=== PATIENT | female | born 1960 | race Caucasian/White ===

== ENCOUNTER 2019-10-13 15:39 | Outpatient (CLI) | payer OTHER, SELFPAY ==
--- NOTE | ~2019-10-13 | MM_ITS ---
EXAMINATION: MM screening [facility] BI w ezekiel HISTORY: Screening mammogram TECHNIQUE: Craniocaudal and mediolateral oblique 3-D tomosynthesis images were obtained and synthetic 2-D images were generated. CAD analysis was submitted and interpreted. COMPARISON: 07/05/2018 bilateral digital screening mammogram 06/03/2017 bilateral digital screening mammogram BREAST PARENCHYMAL COMPOSITION: There are scattered areas of fibroglandular density. FINDINGS: Occasional bilateral benign calcifications there are 2 biopsy markers on the left; history of 2 prior benign left breast biopsies. There is no evidence of suspicious mass, calcification, or ar chitectural distortion to suggest malignancy in either breast. There has been no suspicious interval change. IMPRESSION: 1. No mammographic evidence of malignancy. 2. Recommend routine screening mammography in one year. BI-RADS Category 2: Benign finding(s). Reviewed, dictated and finalized at location A.
== END 2019-10-13 15:40 | disposition home or self-care (01) ==
LOC: ANHIMG 15:42
PROVIDERS: PCP Internal Medicine; Visit Provider Obstetrics & Gynecology
DX: Z12.31 Encounter for screening mammogram for malignant neoplasm of breast (principal)
CPT/HCPCS: 77063; 77067

== ENCOUNTER 2020-10-17 16:00 | Outpatient (CLI) | payer OTHER, SELFPAY ==
--- NOTE | ~2020-10-17 | MM_ITS ---
EXAMINATION: MM screening [facility] BI w ezekiel HISTORY: Screening mammogram TECHNIQUE: Craniocaudal and mediolateral oblique 3-D tomosynthesis images were obtained and synthetic 2-D images were generated. CAD analysis was submitted and interpreted. COMPARISON: 10/13/2019, 07/05/2018, 06/03/2017 BREAST PARENCHYMAL COMPOSITION: There are scattered areas of fibroglandular density. FINDINGS: There is no evidence of suspicious mass, calcification, or architectural distortion to sugg est malignancy in either breast. There has been no suspicious interval change. IMPRESSION: 1. No mammographic evidence of malignancy. 2. Recommend routine screening mammography in one year. BI-RADS Category 1: Negative Reviewed, dictated and finalized at location A.
== END 2020-10-17 16:01 | disposition home or self-care (01) ==
LOC: ANHIMG 16:05
PROVIDERS: PCP Internal Medicine; Visit Provider Obstetrics & Gynecology
DX: Z12.31 Encounter for screening mammogram for malignant neoplasm of breast (principal)
CPT/HCPCS: 77063; 77067

== ENCOUNTER 2021-11-29 15:18 | Outpatient (CLI) | payer OTHER, SELFPAY ==
--- NOTE | ~2021-11-29 | MM_ITS ---
EXAMINATION: MM screening [facility] BI w ezekiel HISTORY: Screening mammogram TECHNIQUE: Craniocaudal and mediolateral oblique 3-D tomosynthesis images were obtained and synthetic 2-D images were generated. CAD analysis was submitted and interpreted. COMPARISON: 10/17/2020, 10/13/2019, 07/2018 bilateral screening mammogram examinations BREAST PARENCHYMAL COMPOSITION: There are scattered areas of fibroglandular density. FINDINGS: 2 biopsy markers on the left; history of 2 prior benign left breast biopsies. Occasional bi lateral benign calcifications. There is no evidence of suspicious mass, calcification, or architectur al distortion to suggest malignancy in either breast. There has been no suspicious interval change. IMPRESSION: 1. No mammographic evidence of malignancy. 2. Recommend routine screening mammography in one year. BI-RADS Category 2: Benign finding(s). Reviewed, dictated and finalized at location B.
== END 2021-11-29 15:19 | disposition home or self-care (01) ==
LOC: ANHIMG 15:21
PROVIDERS: PCP Internal Medicine; Visit Provider Obstetrics & Gynecology
DX: Z12.31 Encounter for screening mammogram for malignant neoplasm of breast (principal)
CPT/HCPCS: 77063; 77067

== ENCOUNTER 2023-02-12 08:02 | Outpatient (CLI) | payer OTHER, SELFPAY ==
--- NOTE | ~2023-02-12 | MM_ITS ---
EXAMINATION: MM screening [facility] BI w ezekiel HISTORY: Screening mammogram TECHNIQUE: Craniocaudal and mediolateral oblique 3-D tomosynthesis images were obtained and synthetic 2-D images were generated. CAD analysis was submitted and interpreted. COMPARISON: 11/29/2021, 10/17/2020, 10/13/2019, 07/05/2018 BREAST PARENCHYMAL COMPOSITION:There are scattered areas of fibroglandular density. FINDINGS: No suspicious mass, calcification, or architectural distortion are identified in either erika ast to suggest malignancy. There has been no suspicious interval change. IMPRESSION: No mammographic evidence of malignancy. Recommend routine screening mammography in one year. BI-RADS Category 1: Negative Reviewed, dictated and finalized at location .
== END 2023-02-12 08:03 | disposition home or self-care (01) ==
PROVIDERS: PCP Internal Medicine; Visit Provider Obstetrics & Gynecology
DX: Z12.31 Encounter for screening mammogram for malignant neoplasm of breast (principal)
CPT/HCPCS: 77063; 77067

== ENCOUNTER 2024-04-14 08:58 | Outpatient (CLI) | payer OTHER, SELFPAY ==
--- NOTE | ~2024-04-14 | MM_ITS ---
EXAMINATION: MM screening [facility] BI w ezekiel HISTORY: Screening TECHNIQUE: Craniocaudal and mediolateral oblique 3-D tomosynthesis images were obtained and synthetic 2-D images were generated. CAD analysis was submitted and interpreted. COMPARISON: Comparison to multiple prior studies sequentially, with oldest reviewed study dated 10/12. BREAST PARENCHYMAL COMPOSITION: Not dense: There are scattered areas of fibroglandular density. FINDINGS: Left breast asymmetry in the upper outer quadrant is unchanged. There is no evidence of tia picious mass, calcification, or architectural distortion to suggest malignancy in either breast. Ther e has been no suspicious interval change. IMPRESSION: 1. No mammographic evidence of malignancy. 2. Recommend routine screening mammography in one year. BI-RADS Category 1: Negative Reviewed, dictated and finalized at location B. L COOK
== END 2024-04-14 08:59 | disposition home or self-care (01) ==
PROVIDERS: PCP Internal Medicine; Visit Provider Obstetrics & Gynecology
DX: Z12.31 Encounter for screening mammogram for malignant neoplasm of breast (principal)
CPT/HCPCS: 77063; 77067

== ENCOUNTER 2024-09-23 01:14 | Day surgery (SDC) | payer OTHER, SELFPAY ==
[2024-09-20 10:24] VITALS: BMI 32.4
--- OUTSIDE RECORDS SUMMARY | 2024-09-23 01:18 | XMS_ITS | Clinical Summary ---
Author Organization [facility] Address [address] [place] [address] Care Team Providers Care Destaticizer Feeder Name Role Phone Subhash Farooq Primary Care Provider [phone] Allergies No known active allergies Medications carvedilol (COREG) 25 mg tablet take 1 tablet by oral route 2 times every day with food 0 0 06/20/2016 Active felodipine (PLENDIL) 10 mg 24 hr tablet take 1 tablet by oral route every day 0 0 06/20/2016 Active benazepril (LOTENSIN) 40 mg tablet take 1 tablet by oral route every day 0 0 06/20/2016 Active cholecalciferol (VITAMIN D-3) 2,000 unit capsule Take by oral route. Active pantoprazole DR (PROTONIX) 40 mg EC tablet 12/10/2017 Active cetirizine (ZyrTEC) 10 mg tablet Take 1 tablet (10 mg total) by mouth daily PRN Active atorvastatin (LIPITOR) 20 mg tablet Take 1 tablet (20 mg total) by mouth daily 03/03/2022 Active Active Problems Problem Noted Date Diagnosed Date Hyperglycemia 03/13/2020 Assessment & Plan (04/13/2024 4:14 PM BLOOD TYPER): Importance of diet and exercise to avoid progression to diabetes was discussed Update hemoglobin A1c Assessment & Plan (04/23/2023 11:03 AM BLOOD TYPER): pre diabetes A1c was up to 6.6% on 08/17/21 Diet controlled A1c 6.1% on 05/01/22 A1c 6.4% on 05/19/20 A1c 6.2% on 03/29/19 Plan: patient to continue diet. check A1c Assessment & Plan (04/22/2022 4:27 PM BLOOD TYPER): pre diabetes A1c was up to 6.6% on 08/17/21 Patient changed diet and lost almost 30 lbs. A1c 6.4% on 05/19/20 A1c 6.2% on 03/29/19 Plan: I asked patient to continue diet. Patient to have fasting labs including A1c Assessment & Plan (03/15/2021 4:42 PM BLOOD TYPER): Early diabetes A1c 6.4% on 05/19/20 A1c 6.2% on 03/29/19 Plan: I asked patient to watch diet and work on weight loss. Discussed low carb diet and to avoid sweets. Patient to have fasting labs including A1c Assessment & Plan (03/13/2020 4:41 PM BLOOD TYPER): Fasting hyperglycemia A1c 6.2% on 03/29/19 Early diabetes Patient changing diet Plan: Explained to patient ADA diet Patient to work on weight loss with diet and exercise. Essential hypertension 12/19/2016 Pituitary adenoma 06/20/2016 Overview (08/07/2016): Pituitary adenoma Assessment & Plan (04/13/2024 4:14 PM BLOOD TYPER): Without significant changes since MRI from 2018 Would recommend follow-up MRI next year Will proceed for hormonal workup including TSH, free T4, acth and morning cortisol Assessment & Plan (04/23/2023 11:02 AM BLOOD TYPER): Pituitary macroadenoma since 2013. started on radiation treatment due to increase in size 13 mm in MRI 2016 monitored by her Neurosurgeon on annual basis Last MRI on 04/01/23- stable work up did not show hormonal dysfunction. She had borderline low ACTH, but normal Cosyntropin stimulation test in September 2016. Patient is clinically stable. Labs on 05/01/22 Prolactin was 53 Normal TSh and free T4. Plan: We will continue to monitor for pituitary hormonal abnormality as the result of radiation. Check labs this week Follow up in one year if stable. She will see Dr. Parra Assessment & Plan (04/22/2022 4:28 PM BLOOD TYPER): Pituitary macroadenoma since 2013. started on radiation treatment due to increase in size 13 mm in MRI 2016 monitored by her Neurosurgeon on annual basis Last MRI on 03/04/21- she will have one next year. work up did not show hormonal dysfunction. She had borderline low ACTH, but normal Cosyntropin stimulation test in September 2016. Patient is clinically stable. Labs on 04/06/21 Prolactin was up to 47 Normal TSh and free T4. Plan: We will continue to monitor for pituitary hormonal abnormality as the result of radiation. Check labs this month. Follow up in one year if stable. Assessment & Plan (03/15/2021 4:41 PM BLOOD TYPER): Pituitary macroadenoma since 2013. started on radiation treatment due to increase in size 13 mm in MRI 2016 monitored by her Neurosurgeon on annual basis Last MRI on 03/04/21 work up did not show hormonal dysfunction. She had borderline low ACTH, but normal Cosyntropin stimulation test in September 2016. Patient is clinically stable. Labs on 05/19/20 Prolactin was up to 49 Normal TSh and free T4. Plan: We will continue to monitor for pituitary hormonal abnormality as the result of radiation. Check labs this month. Follow up in one year if stable. Assessment & Plan (03/13/2020 4:40 PM BLOOD TYPER): Pituitary macroadenoma since 2013. started on radiation treatment due to increase in size 13 mm in MRI 2016 monitored by her Neurosurgeon on annual basis Last MRI in February/2020 work up did not show hormonal dysfunction. With normal prolactin and TFT and BMP. She had borderline low ACTH, but normal Cosyntropin stimulation test in September 2016. Patient is clinically stable. Labs in July 2017 showed normal BMP TSH 1.6 with normal free T4 of 1.11 Am cortisol 16.2 with ACTH of 8.8. Labs in 2018 Am cortisol 11.2 with normal TFT Plan: We will continue to monitor for pituitary hormonal abnormality as the result of radiation. Check labs this month. Follow up in one year if stable. Encounters Date Type Department Care Team Description 07/29/2024 Results Follow-Up [facility] of [address] [address] Kristen Parra MD Cortisol, ACTH, Cortisol, Cortisol 07/22/2024 11:05 AM CDT Lab [address] [address] Pituitary adenoma (HCC) 07/22/2024 10:15 AM CDT Clinical Support [facility] of [address] [address] Pituitary adenoma (HCC) (Primary Dx) 07/01/2024 Results Follow-Up [facility] of [address] [address] Kristen Parra MD T4, free, TSH, Prolactin, Additional followed-up results: 3 from Last 3 Months Medical History Medical History Date Comments Hypertension Hyperlipidemia Family History Medical History Relation Name Comments Diabetes Father Diabetes mellit us; Hypertension Father Hypertension; Cancer Mother Cancer, unknown ; Coronary artery disease Other 1 Fami ly history of Coronary artery disease; Hypertension Other 2 Family history of Hypertension; Relation Name Status Comments Father Mother Other 1 Other 2 Social History Tobacco Use Types Packs/Day Years Used Date Smoking Tobacco: Never Smokeless Tobacco: Never Tobacco Cessation:Counseling Given: Not Answered AUDIT-C Answer Date Recorded Q1: How often do you have a drink containing alcohol? Never 04/13/2024 Q2: How many drinks containi ng alcohol do you have on a typical day when you are drinking? Patient does not drink Q3: How often do you have si x or more drinks on one occasion? Never 04/13/2024 PHQ-2 Answer Date Recorded PHQ-2 Total Score (If total score is 3 or more points, staff should administer the PHQ-9) 0 04/13/2024 Comments Unknown Sex and Gender Information Value Date Recorded Sex Assigned at Not on file Legal Sex Female 2:45 AM BLOOD TYPER Gender Identity Not on file Sexual Orientation Straight 04/13/2024 2: 17 PM BLOOD TYPER Obstetrics History Last Filed Vital Signs Vital Sign Reading Time Taken Comments Blood Pressure 104/62 04/13/2024 2:18 PM BLOOD TYPER Pulse 60 04/13/2024 2:18 PM BLOOD TYPER Temperature 37 C (98.6 F) 04/13/2024 2:18 PM BLOOD TYPER Respiratory Rate 18 04/13/2024 2:18 PM BLOOD TYPER Oxygen Saturation - - Inhaled Oxygen Concentration - - Weight 84.6 kg (186 lb 9.6 oz) 04/13/2024 2:18 P M BLOOD TYPER Height 160 cm (5' 3 ) 04/13/2024 2:18 PM BLOOD TYPER Body Mass Index 33.05 04/13/2024 2:18 PM BLOOD TYPER Plan of Treatment Health Maintenance Due Date Last Done Comments Breast Cancer Screening-Mammogram 1961 Cervical Cancer Screening 1961 Colon Cancer Screening-Colonoscopy 1961 Hepatitis C Screening 1961 DTaP/Tdap/Td Vaccine (1 - Tdap) 1972 Hepatitis B Screening 1979 Regular Well Visit/Exam 18-64 1979 Zoster Vaccine (1 of 2) 2011 Covid-19 Vaccine (3 - 2023-2 5 season) 2024 08/30/2020, 08/09/2020 Influenza Vaccine (Season Ended) 2025 Depression Screening 04/13/2025 04/13/2024, 12/19/2016 Pneumococcal vaccine <65 Aged Out No longer eligible based on patient's age to complete this topic Procedures Procedure Name Priority Date/Time Associated Diagnosis Comments CORTISOL Timed 07/22/2024 12:21 PM CDT Pituitary adenoma (HCC) CORTISOL Routine 07/22/2024 11:46 AM CDT Pituitary adenoma (HCC) ACTH Routine 07/22/2024 11:04 AM CDT Pituitary adenoma (HCC) CORTISOL Timed 07/22/2024 11:04 AM CDT Pituitary adenoma (HCC) from Last 3 Months Results * (ABNORMAL) Cortisol (07/22/2024 12:21 PM CDT) Cortisol 24.7(H) 4.8 - 19.5 mcg/dl Comment: Interpretive Data Normal Range: 4.8 - 19.5 mcg/dL; Evening: Half of morning value. This analyte undergoes marked diurnal variation. Ranges indicated apply to morning specimens. Current interpretive data was last revised 2018. Blood 07/22/2024 12:2 1 PM CDT 07/22/2024 5:13 PM CDT us Kristen Parra MD LAB BLOOD ORDERABLES Final Resul t Performing Organization Address [facility] Phone Number [facility] [phone] [address] Department [employer] [address] * (ABNORMAL) Cortisol (07/22/2024 11:46 AM CDT) Cortisol 19.6(H) 4.8 - 19.5 mcg/dl Comment: Interpretive Data Normal Range: 4.8 - 19.5 mcg/dL; Evening: Half of morning value. This analyte undergoes marked diurnal variation. Ranges indicated apply to morning specimens. Current interpretive data was last revised 2018. Blood 07/22/2024 11:4 6 AM CDT 07/22/2024 5:44 PM CDT us Kristen Parra MD LAB BLOOD ORDERABLES Final Resul t Performing Organization Address [facility] Phone Number [facility] [phone] [address] [place] [place] [address] * ACTH (07/22/2024 11:04 AM CDT) ACTH 11.9 7.0 - 63.0 pg/mL Comment:Testing performed by : [facility], [address], [place]., [address] Blood 07/22/2024 11:0 4 AM CDT 07/25/2024 9:54 AM CDT Result April Parra MD LAB BLOOD ORDERABLES Final Resul t Performing Organization Address [facility]/State/ZIP Co de Phone Number JOSE [phone] [address] Department [place] [address] * (ABNORMAL) Cortisol (07/22/2024 11:04 AM CDT) Cortisol 4.7(L) 4.8 - 19.5 mcg/dl Comment: Interpretive Data Normal Range: 4.8 - 19.5 mcg/dL; Evening: Half of morning value. This analyte undergoes marked diurnal variation. Ranges indicated apply to morning specimens. Current interpretive data was last revised 2018. Blood 07/22/2024 11:0 4 AM CDT 07/22/2024 5:44 PM CDT us Kristen Parra MD LAB [place] [address] [address] Department [place] [address] from Last 3 Months Insurance [facility] CHO[facility] PLUS [facility] PLUS [facility] PLUS Care Teams Destaticizer Feeder Relationship Specialty Start Date End Date Subhash Farooq DO [address] [facility] [address] [place], [place] [id number] PCP - General Internal Medicine 04/13/24
--- OUTSIDE RECORDS SUMMARY | 2024-09-23 01:18 | XMS_ITS | Referral Summary ---
Author Organization [facility] Address [address] [place] [address] Care Team Providers Care Tagman Name Role Phone Subhash Farooq Primary Care Provider [phone] Encounters Date Type Department Care Team Description 07/29/2024 Results Follow-Up [facility] [place] [address] [address] Kristen Parra MD Cortisol, ACTH, Cortisol, Cortisol 07/22/2024 11:05 AM CDT Lab [address] [address] Pituitary adenoma (HCC) 07/22/2024 10:15 AM CDT Clinical Support [facility] [address] [address] Pituitary adenoma (HCC) (Primary Dx) 07/01/2024 Results Follow-Up [facility] [address] [address] Kristen Parra MD T4, free, TSH, Prolactin, Additional followed-up results: 3 from Last 3 Months Allergies No known active allergies Medications carvedilol [...] 03/13/2020 Assessment & Plan (04/13/2024 4:14 PM NUCLEAR MEDICINE SPECIALIST): Importance of diet and exercise to avoid progression to diabetes was discussed Update hemoglobin A1c Assessment & Plan (04/23/2023 11:03 AM NUCLEAR MEDICINE SPECIALIST): pre diabetes A1c was up to 6.6% on 08/17/21 Diet controlled A1c 6.1% on 05/01/22 A1c 6.4% on 05/19/20 A1c 6.2% on 03/29/19 Plan: patient to continue diet. check A1c Assessment & Plan (04/22/2022 4:27 PM NUCLEAR MEDICINE SPECIALIST): pre diabetes A1c was up to 6.6% on 08/17/21 Patient changed diet and lost almost 30 lbs. A1c 6.4% on 05/19/20 A1c 6.2% on 03/29/19 Plan: I asked patient to continue diet. Patient to have fasting labs including A1c Assessment & Plan (03/15/2021 4:42 PM NUCLEAR MEDICINE SPECIALIST): Early diabetes A1c 6.4% on 05/19/20 A1c 6.2% on 03/29/19 Plan: I asked patient to watch diet and work on weight loss. Discussed low carb diet and to avoid sweets. Patient to have fasting labs including A1c Assessment & Plan (03/13/2020 4:41 PM NUCLEAR MEDICINE SPECIALIST): Fasting hyperglycemia A1c 6.2% on 03/29/19 Early diabetes Patient changing diet Plan: Explained to patient ADA diet Patient to work on weight loss with diet and exercise. Essential hypertension 12/19/2016 Pituitary adenoma 06/20/2016 Overview (08/07/2016): Pituitary adenoma Assessment & Plan (04/13/2024 4:14 PM NUCLEAR MEDICINE SPECIALIST): Without significant changes since MRI from 2018 Would recommend follow-up MRI next year Will proceed for hormonal workup including TSH, free T4, acth and morning cortisol Assessment & Plan (04/23/2023 11:02 AM NUCLEAR MEDICINE SPECIALIST): Pituitary macroadenoma since 2013. started on radiation [...] Parra Assessment & Plan (04/22/2022 4:28 PM NUCLEAR MEDICINE SPECIALIST): Pituitary macroadenoma since 2013. started on radiation [...] stable. Assessment & Plan (03/15/2021 4:41 PM NUCLEAR MEDICINE SPECIALIST): Pituitary macroadenoma since 2013. started on radiation [...] stable. Assessment & Plan (03/13/2020 4:40 PM NUCLEAR MEDICINE SPECIALIST): Pituitary macroadenoma since 2013. started on radiation [...] Follow up in one year if stable. Social History Tobacco Use Types Packs/Day Years [...] on file Legal Sex Female 2:45 AM NUCLEAR MEDICINE SPECIALIST Gender Identity Not on file Sexual Orientation Straight 04/13/2024 2: 17 PM NUCLEAR MEDICINE SPECIALIST Last Filed Vital Signs Vital Sign Reading Time Taken Comments Blood Pressure 104/62 04/13/2024 2:18 PM NUCLEAR MEDICINE SPECIALIST Pulse 60 04/13/2024 2:18 PM NUCLEAR MEDICINE SPECIALIST Temperature 37 C (98.6 F) 04/13/2024 2:18 PM NUCLEAR MEDICINE SPECIALIST Respiratory Rate 18 04/13/2024 2:18 PM NUCLEAR MEDICINE SPECIALIST Oxygen Saturation - - Inhaled Oxygen Concentration - - Weight 84.6 kg (186 lb 9.6 oz) 04/13/2024 2:18 P M NUCLEAR MEDICINE SPECIALIST Height 160 cm (5' 3 ) 04/13/2024 2:18 PM NUCLEAR MEDICINE SPECIALIST Body Mass Index 33.05 04/13/2024 2:18 PM NUCLEAR MEDICINE SPECIALIST Plan of Treatment Not on file Procedures Procedure Name Priority Date/Time Associated Diagnosis [...] LAB BLOOD ORDERABLES Final Resul t JOSE [id number] [address] Department [place] [address] * (ABNORMAL) Cortisol (07/22/2024 11:46 AM CDT) Cortisol 19.6(H) 4.8 - 19.5 mcg/dl Comment: Interpretive Data Normal Range: 4.8 - 19.5 mcg/dL; Evening: Half of morning value. This analyte undergoes marked diurnal variation. Ranges indicated apply to morning specimens. Current interpretive data was last revised 2018. Blood 07/22/2024 11:4 6 AM CDT 07/22/2024 5:[address] [facility] Kristen Parra MD LAB BLOOD ORDERABLES Final Resul t Performing Organization Address [facility] Co de Phone Number JOSE MURRIETA [phone] [address] [place] [address] * ACTH (07/22/2024 11:04 AM CDT) ACTH 11.9 7.0 - 63.0 pg/mL Comment:Testing performed by : [facility], [address] [place] [address]., [id number] Blood 07/22/2024 11:0 4 AM CDT 07/25/2024 9:[address] [facility] Kristen Parra MD LAB BLOOD ORDERABLES Final Resul t Performing Organization Address [facility] de Phone Number JOSE MURRIETA [phone] [address] [place] [address] * (ABNORMAL) Cortisol (07/22/2024 11:04 AM CDT) Cortisol 4.7(L) 4.8 - 19.5 mcg/dl Comment: Interpretive Data Normal Range: 4.8 - 19.5 mcg/dL; Evening: Half of morning value. This analyte undergoes marked diurnal variation. Ranges indicated apply to morning specimens. Current interpretive data was last revised 2018. Blood 07/22/2024 11:0 4 AM CDT 07/22/2024 5:[address] [facility] Kristen Prara MD LAB BLOOD ORDERABLES Final Resul t Performing Organization Address [facility] Co de Phone Number JOSE MURRIETA [phone] [address] [place] [address] from Last 3 Months Insurance [facility] CHO[facility] PLUS [facility] PLUS [facility] PLUS Care Teams Tagman Relationship Specialty Start Date End Date Subhash Farooq DO [address] [facility] [address] [place] [address] PCP - General Internal Medicine 04/13/24
[2024-09-23 07:48] VITALS: BP 125/72; PULSE 90; RESP 16; TEMP 36.2; O2SAT 98
[2024-09-23] MEDS: LACTATED RINGERS 1,000 ML 150 ML IV CONT (07:57)
--- NOTE | 2024-09-23 08:25 | P.HP_ITS ---
History of Present Illness History of Present Illness Consent: Risks, benefits, and alternatives have been discussed and questions answered. Patient agrees to proceed with procedure. Chief complaint: Hx of polyps Narrative: Diamond Sanchez is a 64 year old female with polyp in 2019 Review of Systems Review of Systems: All systems reviewed & are unremarkable except as noted in HPI and below PMFSH Past Medical History Medical History (Updated 09/23/24 @ 08:26 by Gabo Adams MD) Colon polyp Other seasonal allergic rhinitis Familial hypercholesterolemia Benign neoplasm of pituitary gland Abnormal mammogram Hypertension Hyperlipidemia Pituitary tumor History of vaginal delivery x 3 Hyperglycemia Sinus bradycardia Family History Family History (Updated 07/06/24 @ 09:27 by ROSA Velasquez) Father Diabetes mellitus Hypertension Mother Diabetes mellitus Hypertension Family history of malignant neoplasm of gastrointestinal tract Rectal cancer Other Family history of cardiovascular disease Social History Social History (Updated 07/06/24 @ 09:28 by ROSA Velasquez) Smoking status: Never smoker Second hand tobacco smoke exposure: Yes Alcohol intake: current Alcohol use details: very rarely Substance use: never Substance use type: does not use Do You Feel Safe in your Home?: Yes Lack of Transportation: No Lack of Food: Never True Current Housing: I Have Housing Concerned About Future Housing: No Difficulty Paying Gas/Electric Bills: No Difficulty Paying for Meds: No Currently Unemployed: No Education: High School Diploma/GED Difficulty w/ Childcare or Family Care: No Living arrangements: with family Occupation/Education: occupation 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 Gender identity (if verbalized by the patient): Female Sexual Orientation (if Verbalized by the Patient): Straight or Heterosexual Spiritual care concerns: No Meds Home Medications and Allergies Home Medications ?Medication ?Instructions ?Recorded ?Confirmed ?Type cholecalciferol (vitamin D3) 125 5,000 unit PO DAILY 05/12/19 09/23/24 History mcg (5,000 unit) capsule benazepril 40 mg tablet 40 mg PO DAILY #90 tabs 11/23/23 09/23/24 Rx atorvastatin 20 mg tablet 20 mg PO DAILY #90 tabs 12/14/23 09/23/24 Rx felodipine 10 mg tablet,extended 10 mg PO DAILY #90 tabs 05/19/24 09/23/24 Rx release 24 hr carvedilol 25 mg tablet (Coreg) 25 mg PO Q12H #180 tabs 05/24/24 09/23/24 Rx pantoprazole 40 mg tablet,delayed 40 mg PO QAM #90 tabs 05/24/24 09/23/24 Rx release Allergies Allergy/AdvReac Type Severity Reaction Status Date / Time No Known Allergies Allergy Verified 09/23/24 07:46 Vital Signs Vital Signs - 24 hr 09/23/24 07:48 Temperature 97.1 F L Pulse Rate 90 Respiratory Rate 16 Blood Pressure 125/72 Pulse Oximetry 98 Oxygen Delivery Room Air Exam Const: General: comfortable and no acute distress HENMT: Face/Nose/Sinus: Normal nares present Eyes: General: appearance normal, both eyes and all related structures Neck: Neck: no JVD Resp: Auscultation: clear to auscultation bilaterally Cardio: Rate: regular rate Rhythm: regular rhythm GI: Inspection: non-distended GI Palp: Yes Soft to palpation Skin: General skin exam: normal color Neuro: General: gait normal Speech: normal speech Extrem: General: normal to inspection Psych: Mental Status: mental status grossly normal Assessment and Plan Assessment and plan (1) Family history of colon cancer in father: Code(s): Z80.0 - Family history of malignant neoplasm of digestive organs Status: Acute (2) Colon polyp: Code(s): K63.5 - Polyp of colon Status: Acute Assessment and Plan: colonoscopy
--- NOTE | 2024-09-23 08:25 | WPDANESEPPF ---
Anes - Initial Pre Proc Eval Procedure: Operation Date: 09/23/24 09:00 Proposed Procedures p Screening Colonoscopy - Gabo Adams MD Date/Time: 09/23/24 08:25 Surgeon: Gabo Adams MD Pre Op Diagnosis: Hx of polyps Patient Data Age: 64 Gender: F Height: 1.6 m Weight: 82 kg Last Vital Signs Temp 36.2 C L 09/23/24 07:48 Pulse 90 09/23/24 07:48 Resp 16 09/23/24 07:48 BP 125/72 09/23/24 07:48 Pulse Ox 98 09/23/24 07:48 O2 Del Method Room Air 09/23/24 07:48 Allergies Allergy/AdvReac Type Severity Reaction Status Date / Time No Known Allergies Allergy Verified 09/23/24 07:46 Home Medications ?Medication ?Instructions ?Recorded ?Confirmed ?Type cholecalciferol (vitamin D3) 125 5,000 unit PO DAILY 05/12/19 09/23/24 History mcg (5,000 unit) capsule benazepril 40 mg tablet 40 mg PO DAILY #90 tabs 11/23/23 09/23/24 Rx atorvastatin 20 mg tablet 20 mg PO DAILY #90 tabs 12/14/23 09/23/24 Rx felodipine 10 mg tablet,extended 10 mg PO DAILY #90 tabs 05/19/24 09/23/24 Rx release 24 hr carvedilol 25 mg tablet (Coreg) 25 mg PO Q12H #180 tabs 05/24/24 09/23/24 Rx pantoprazole 40 mg tablet,delayed 40 mg PO QAM #90 tabs 05/24/24 09/23/24 Rx release Patient hx anesthesia problems: none Family hx anesthesia problems: none Results Review: All pre-operative results and documents have been reviewed as part of the pre-operative evaluation. [facility] Past Medical History Medical History Other seasonal allergic rhinitis Familial hypercholesterolemia Benign neoplasm of pituitary gland Abnormal mammogram Hypertension Hyperlipidemia Pituitary tumor History of vaginal delivery x 3 Hyperglycemia Sinus bradycardia Family History Family History Father Diabetes mellitus Hypertension Mother Diabetes mellitus Hypertension Family history of malignant neoplasm of gastrointestinal tract Rectal cancer Other Family history of cardiovascular disease Social History Social History Smoking status: Never smoker Second hand tobacco smoke exposure: Yes Alcohol intake: current Alcohol use details: very rarely Substance use: never Substance use type: does not use Do You Feel Safe in your Home?: Yes Lack of Transportation: No Lack of Food: Never True Current Housing: I Have Housing Concerned About Future Housing: No Difficulty Paying Gas/Electric Bills: No Difficulty Paying for Meds: No Currently Unemployed: No Education: High School Diploma/GED Difficulty w/ Childcare or Family Care: No Living arrangements: with family Occupation/Education: occupation 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 Gender identity (if verbalized by the patient): Female Sexual Orientation (if Verbalized by the Patient): Straight or Heterosexual Spiritual care concerns: No Anes - Eval Final PreProcedure Day of Procedure 09/23/24 08:25 Patient weight: obese Heart: regular rate and rhythm Lungs: clear to auscultation Airway: Mallampati scale class II Neurological: alert and oriented Last oral intake: >/= 8 hours ASA classification: III Emergent: no Anesthetic plan: proceed Anesthesia type and monitoring: general GIVS and standard monitoring Results Review: All pre-operative results and documents have been reviewed as part of the pre-operative evaluation. Informed Consent: The patient's anesthetic plan and its attendant risks and benefits were discussed with the patient/family/POA. Questions were solicited and answers provided to the satisfaction of the patient/family/POA.
[2024-09-23 08:42] VITALS: BP 101/52; PULSE 44; RESP 18; O2SAT 93
[2024-09-23 08:52] VITALS: BP 107/59; PULSE 45; RESP 18; O2SAT 100
[2024-09-23 09:02] VITALS: BP 119/59; PULSE 44; RESP 18; O2SAT 100
--- NOTE | 2024-09-23 09:11 | SUR.PHASEII ---
PT HEART RATE 44. 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
== END 2024-09-23 09:17 | disposition home or self-care (01) ==
PROVIDERS: PCP Internal Medicine; Referring Provider Internal Medicine; Visit Provider Internal Medicine Gastroenterology
PROC: 0DJD8ZZ Inspection of Lower Intestinal Tract, Via Natural or Artificial Opening Endoscopic (ICD-10-PCS; CPT 45378; principal; 2024-09-23 09:00)
DX: Z12.11 Encounter for screening for malignant neoplasm of colon (principal); K64.8 Other hemorrhoids; K64.4 Residual hemorrhoidal skin tags; K57.30 Diverticulosis of large intestine without perforation or abscess without bleeding; I10 Essential (primary) hypertension; E78.5 Hyperlipidemia, unspecified; R73.9 Hyperglycemia, unspecified; E78.01 Familial hypercholesterolemia; R00.1 Bradycardia, unspecified; E66.9 Obesity, unspecified; Z68.32 Body mass index [BMI] 32.0-32.9, adult; Z86.0100 Personal history of colon polyps, unspecified; Z80.0 Family history of malignant neoplasm of digestive organs; Z82.49 Family history of ischemic heart disease and other diseases of the circulatory system
CPT/HCPCS: 45378; J2704; J7120

== ENCOUNTER 2025-04-21 07:43 | Outpatient (CLI) | payer OTHER, SELFPAY ==
--- NOTE | ~2025-04-21 | MM_ITS ---
EXAMINATION: MM screening [facility] BI w ezekiel HISTORY: Screening TECHNIQUE: Craniocaudal and mediolateral oblique 3-D tomosynthesis images were obtained and synthetic 2-D images were generated. CAD analysis was submitted and interpreted. COMPARISON: Comparison to multiple prior studies sequentially, with oldest reviewed study dated 07/05/2018. BREAST PARENCHYMAL COMPOSITION: Not dense: There are scattered areas of fibroglandular density. FINDINGS: Stable benign-appearing breast calcifications. There are tissue markers in the left breast consistent with prior benign biopsy. There is no evidence of suspicious mass, calcification, or architectural distortion to suggest malignancy in either breast. There has been no suspicious interval sarah nge. IMPRESSION: 1. No mammographic evidence of malignancy. 2. Recommend routine screening mammography in one year. BI-RADS Category 2: Benign finding(s). Reviewed, dictated and finalized at location O. RUMENTATION AND CONTROL TECHNICIAN
--- OUTSIDE RECORDS SUMMARY | 2025-04-21 07:47 | XMS_ITS | Clinical Summary ---
Author Organization [facility] Address [address] [place] [address] Care Team Providers Care Parquet Floor Layer'S Helper Name Role Phone Edilson Romero MD Primary Care Provider [phone] Allergies No known active allergies Medications benazepril 40 MG tablet 40 mg. 06/20/2016 Active carvedilol 25 MG tablet 25 mg. 03/28/2013 Active Cholecalciferol (RA VITAMIN D-3) 125 MCG (5000 UT) Cap Take 1 capsule by mouth daily. Active felodipine ER 10 MG TABLET SR 24 HR 24 hr tablet 10 mg. 08/02/2012 Active cetirizine 10 MG tablet Take 10 mg by mouth daily. 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 Pulse 85 05/08/2023 7:53 AM CHECK WRITER SALESPERSON Temperature 36.1 C (96.9 F) 05/08/2023 7:53 AM CHECK WRITER SALESPERSON Respiratory Rate - - Oxygen Saturation 99% 05/08/2023 7:53 AM CHECK WRITER SALESPERSON Inhaled Oxygen Concentration - - Weight 84.4 kg (186 lb) 05/08/2023 7:53 AM CHECK WRITER SALESPERSON Height 162.6 cm (5' 4) 05/08/2023 7:53 AM CHECK WRITER SALESPERSON Body Mass Index 31.93 05/08/2023 7:53 AM CHECK WRITER SALESPERSON Plan of Treatment Health Maintenance Due Date Last Done Comments Cervical Cancer Screening Pa p Smear (Age 30 to 64) Every 3 Years 1961 Colorectal Cancer Screening Colonoscopy (10 Years) 1961 Annual Physical 1964 Hepatitis C 1979 DTaP, Tdap and Td Vaccines ( 1 - Tdap) 1980 Cervical Cancer Screening Pa p with HPV Testing (Age 30 to 64) Every 5 Years 1991 Cervical Cancer Screening wi th HPV 1991 Mammogram Screening 2001 Pneumococcal Vaccine: 50+ Years (1 of 1 - PCV) 2011 Zoster Vaccines (1 of 2) 2011 PHQ-2 (Physician [place]) 05/04/2024 COVID-19 Vaccine (3 - 2024-2 6 season) 2025 08/30/2020, 08/09/2020 Influenza Adult (#1) 2025 RSV Immunization or 60+ Years (1 - 1-dose 75+ series) 2036 Hepatitis A Vaccines Aged Out No long er eligible based on patient's age to complete this topic Meningococcal B Vaccine Aged Out No l onger eligible based on patient's age to complete this topic Meningococcal Vaccine Aged Out No [place] eligible based on patient's age to complete this topic RSV Immunizations Under 20 Months Aged Out No longer eligible b ased on patient's age to complete this topic Insurance [facility] Care Teams Parquet Floor Layer'S Helper Relationship Specialty Start Date End Date Edilson Romero MD [address] [place] [address] PCP - General 08/04/16
--- OUTSIDE RECORDS SUMMARY | 2025-04-21 07:47 | XMS_ITS | Patient Health Record ---
Author Organization [facility] Address [address]et K[address] [facility] [address] [place] [address] Care Team Providers Care Freezer Unloader Name Role Phone Sd Romero DOney Primary Care Provider Garcia Lafleur Unavailable [phone] Reason For Referral No Information Medications Medication SIG (Take, Route, Frequency, Duration) Notes Start Date End Date Status Felodipine ER 10 MG Tablet Extended Release 24 Hour 1 tab(s) orally once a day Active Benazepril HCl 40 MG Tablet 1 tab(s) orally once a day A ctive Carvedilol 25 MG Tablet 1 tab(s) orally 2 times a day Active Vitamin D3 125 MCG (5000 UT) Capsule 1 cap(s) orally once a day A ctive Social History Social History DONOT USE this Use Social Info Question Answer Notes None Are you a: nonsmoker Problems Problem Type SNOMED Code ICD Code Onset Dates Problem Status W/U Status Risk Notes Problem Pituitary macroadenoma (604685424) Pituitary macroadenoma (D35.2) Active confirmed Plan Of Treatment No Information Insurance Providers Payer Name Payer Address Payer Phone Subscriber Number Group Number Insured Name Patient Relationship to Insured Coverage Start Date Coverage End Date [facility] [address] [address] [place], [place] [id number] [phone] [id number] RICHARD ABRAMS Self - patient is the insured Medical (General) History Medical History History ICD Code HTN Pituitary adenoma Hospitalization History Reason Date(Month/Year) childbirth x 3 thyroditis
== END 2025-04-21 07:44 | disposition home or self-care (01) ==
PROVIDERS: PCP Internal Medicine; Visit Provider Obstetrics & Gynecology
DX: Z12.31 Encounter for screening mammogram for malignant neoplasm of breast (principal)
CPT/HCPCS: 77063; 77067